=== PATIENT | female | born 1945 | race Caucasian/White ===

== ENCOUNTER 2018-09-08 07:15 | Outpatient (CLI) | payer MEDICARE, OTHER | END 2018-09-08 07:17 | LOC: LAB 07:15 | PROVIDERS: ATTEND Family Medicine | DX: F07.81 Postconcussional syndrome (principal); G30.9 Alzheimer's disease, unspecified; F33.2 Major depressive disorder, recurrent severe without psychotic features | CPT/HCPCS: 80164 ==

== ENCOUNTER 2018-10-13 07:30 | Outpatient (CLI) | payer MEDICARE, OTHER | END 2018-10-13 07:33 | LOC: LAB 07:30 | PROVIDERS: ATTEND Family Medicine | DX: I10 Essential (primary) hypertension (principal) | CPT/HCPCS: 83036 ==